=== PATIENT | male | born 1965 | race Caucasian/White ===

== ENCOUNTER 2016-04-04 17:40 | Emergency (ER) | payer BC ==
[~2016-04-04] VITALS: Ht 175.3 cm; Wt 108.4 kg
[2016-04-04 19:29] VITALS: BP 155/116
== END 2016-04-04 20:40 | disposition home or self-care (01) ==
LOC: ER 17:43
DX: M25.462 Effusion, left knee (principal); M19.90 Unspecified osteoarthritis, unspecified site; M10.9 Gout, unspecified; Z88.1 Allergy status to other antibiotic agents
CPT/HCPCS: 20610

== ENCOUNTER 2016-05-11 07:59 | Emergency (ER) | payer BC ==
[~2016-05-11] VITALS: Ht 175.3 cm; Wt 108.9 kg
[2016-05-11 08:13] VITALS: BP 160/91
== END 2016-05-11 09:00 | disposition home or self-care (01) ==
LOC: ER 08:07
DX: M25.561 Pain in right knee (principal); M19.90 Unspecified osteoarthritis, unspecified site; M10.9 Gout, unspecified; Z88.1 Allergy status to other antibiotic agents
CPT/HCPCS: 29505; 73562

== ENCOUNTER 2018-08-14 18:09 | Emergency (ER) | payer BC ==
[~2018-08-14] VITALS: Ht 175.3 cm; Wt 108.0 kg
[2018-08-14 18:15] VITALS: BP 151/70
[2018-08-14] MEDS ORDERED: LIDOCAINE 1% HCL (LOCAL ANESTH.) INJ 20ML MDV ID ONE (20:00)
[2018-08-14] MEDS ORDERED: methylPREDNISolone SOD SUCC 125 MG/2 ML VL IM ONE (20:30)
[2018-08-14] MEDS ORDERED: COLCHICINE 0.6 MG CAP PO ONE (20:30)
== END 2018-08-14 20:32 | disposition home or self-care (01) ==
LOC: ER 18:13
DX: M25.461 Effusion, right knee (principal); M19.90 Unspecified osteoarthritis, unspecified site; Z88.1 Allergy status to other antibiotic agents
CPT/HCPCS: 20610; 73562; 96372; 99284; J2001; J2930

== ENCOUNTER 2019-03-09 19:19 | Emergency (ER) | payer BC ==
[~2019-03-09] VITALS: Ht 175.3 cm; Wt 113.4 kg
[2019-03-09 19:27] VITALS: BP 139/72
== END 2019-03-10 02:00 | disposition left against medical advice (07) ==
LOC: ER 19:20
DX: M25.561 Pain in right knee (principal); Z53.21 Procedure and treatment not carried out due to patient leaving prior to being seen by health care provider
CPT/HCPCS: 73562